=== PATIENT | female | born 1960 | race Native Hawaiian/Other Pacific Islander ===

== ENCOUNTER 2016-11-17 08:23 | Outpatient (CLI) | payer BC ==
[~2016-11-17 08:23] MED LIST: LEVO0.1224 PO; LEVO0.1T6 PO; OMEP40CA PO
== END 2016-11-17 19:44 | disposition home or self-care (01) ==
LOC: MAMMO 08:23
DX: Z12.31 Encounter for screening mammogram for malignant neoplasm of breast (principal)
CPT/HCPCS: G0202-TC

== ENCOUNTER 2018-09-21 09:10 | Outpatient (CLI) | payer BC | END 2018-09-21 22:48 | disposition home or self-care (01) | LOC: MAMMO 09:10 | DX: Z12.31 Encounter for screening mammogram for malignant neoplasm of breast (principal) ==

== ENCOUNTER 2021-03-19 14:34 | Observation (INO) | payer BC, OTHER ==
[~2021-03-19] VITALS: Ht 165.1 cm; Wt 70.4 kg
[2021-03-19 16:06] LABS: PLATELET COUNT 173 K/uL (152-353)
[2021-03-19 16:24] LABS: POTASSIUM 3.1 mmol/L (3.6-5.2)
--- NOTE | 2021-03-19 16:50 | NUR ---
RT TO ASSESS PT. BBS ARE CLEAR/DIMINSHED. SPO2 97% ON ROOM AIR. HR AT 80. CPT SMARTVEST AT BEDSIDE FOR FUTURE USE. PT EDUCTED ON USE OF ACAPELLA. PT DEMONSTRATED USE OF ACAPELLA. IS INSTRUCT COMPLETED. RT ENCOURAGED PT TO USE FREQUENTLY. PT PULLED 1500 X10 BREATHS. SPACER WITH MASK AND PERCUSSOR FOR CPT LEFT AT BEDSIDE.
[2021-03-19 20:00] VITALS: BP 140/81; TEMP 99.5
[2021-03-19 20:12] VITALS: BP 127/79; TEMP 98.8; Ht 165.1 cm; Wt 70.4 kg
[2021-03-20] VITALS: BP 116/71; TEMP 99.1
--- NOTE | 2021-03-20 03:11 | NUR ---
LATE ENTRY: 03/19/21 1900. PATIENT IV SITE IS INTACT. PATIENT DENIES ANY PAIN. PATIENT DENIES ANY SOB. 2100: PATIENT WAS HELPPED TO THE BATHROOM. PATIENT WAS THEN HOOKED BACK UP TO HER IV 2300: PATIENT IS RESTING QUIETLY, EYES CLOSED, AND BREATHING IS REGULAR NON LABORED
--- NOTE | 2021-03-20 03:21 | NUR ---
PATIENT IS RESTING QUIETLY BREATHING IS REGULAR AND NON LABORED. IV SITE IS INTACT.
--- NOTE | 2021-03-20 03:43 | NUR ---
PATIENT IS RESTING QUIETLY, EYES CLSOED AND BREATHING IS REGULAR NON LABORED
[2021-03-20 04:00] VITALS: BP 107/65; TEMP 99.2
[2021-03-20 06:11] LABS: PLATELET COUNT 158 K/uL (152-353)
[2021-03-20 06:35] LABS: POTASSIUM 3.3 mmol/L (3.6-5.2)
--- NOTE | 2021-03-20 06:41 | NUR ---
patient is sleeping with eyes closed
[2021-03-20 08:00] VITALS: BP 125/79; BP 98/67; TEMP 97.7; TEMP 98.1
[2021-03-20 12:16] VITALS: BP 126/81; TEMP 99.6
[2021-03-20 16:00] VITALS: BP 132/83; TEMP 99.8
--- NOTE | 2021-03-20 23:26 | NUR ---
patient was discharged at 2140. patien iv was taken out and cath tip intact. iv site is clean dry and intact. all patients valuables are secured. patient was wheeled to front and delivered to her
== END 2021-03-20 20:37 | disposition home or self-care (01) ==
LOC: MED/SURG 14:34
PROVIDERS: ADMIT Family Medicine; ATTEND Family Medicine
DX: U07.1 COVID-19 (principal); N39.0 Urinary tract infection, site not specified
CPT/HCPCS: 80053; 82728; 83735; 84100; 85027; 85379; 86140; 87040; 93005; 94667; 94668; 94760; 96365; 96366; 96367; 96375; 99220; G0378; G0379; J0456; J0696

== ENCOUNTER 2021-07-29 10:37 | Observation (INO) | payer BC ==
[~2021-07-29] VITALS: Ht 166.4 cm; Wt 71.4 kg
[2021-07-29 11:23] LABS: PLATELET COUNT 204 K/uL (152-353)
[2021-07-29 11:27] VITALS: BP 178/86; TEMP 98.7; Ht 166.4 cm; Wt 71.4 kg
[2021-07-29 11:51] LABS: PARTIAL THROMBOPLASTIN TIME 24.4 SECONDS (24.5-33.6)
[2021-07-29 11:55] LABS: POTASSIUM 4.6 mmol/L (3.6-5.2)
[2021-07-29 12:00] VITALS: BP 178/86; TEMP 98.7
--- NOTE | 2021-07-29 15:09 | NUR ---
HOME MEDICATIONS REVIEWED WITH PATIENT, MEDICATION RECONCILIATION SHEET COMPLETED AND FAXED TO PHARMACY AND SENT TO DR. BURGOS, NO NEW ORDERS RECEIVED AT THIS TIME.
[2021-07-29] MEDS ORDERED: CLIN300C PO (15:10)
[2021-07-29] MEDS ORDERED: MUPI2OIN2 TOP (15:11)
[2021-07-29] MEDS ORDERED: VITAMIN D1000 UNIT PO (15:12)
[2021-07-29] MEDS ORDERED: ZINC220 M1 PO (15:12)
[2021-07-29] MEDS ORDERED: VITAMIN C1000 MG PO (15:13)
[2021-07-29] MEDS ORDERED: PEPCID20 MG (15:14)
[2021-07-29] MEDS ORDERED: [UNRECOGNIZED DRUG - OTHER] PO (15:27)
[2021-07-29 16:00] VITALS: BP 152/83; TEMP 98.6
--- NOTE | 2021-07-29 16:05 | NUR ---
SUMMER OF RADIOLOGY CALLED AND STATED UTILIZATION REVIEW INFORMED RADIOLOGY THE ULTRASOUND SHOULD BE SCHEDULED AN OUTPATIENT AND PATIENT MUST HAVE A MAMMOGRAM PRIOR TO ULTRASOUND. THE ROLL FILLER REQUESTED RADIOLOGY DEPT NOTIFY ORDERING PHYSICIAN.
--- NOTE | 2021-07-29 16:11 | NUR ---
JOI OF RADIOLOGY DEPT NOTIFIED MEDICAL/SURGICAL DEPT SHE WAS UNABLE TO LOCATE A POLICY ON DEPTS NOTIFYING PHYSICIANS DIRECTLY AND INSTRUCTED MED SURG DEPT TO INFORM ORDERING PHYSICIAN THE ULTRASOUND WILL NOT BE DONE TODAY.
--- NOTE | 2021-07-29 16:31 | NUR ---
RECEIVED NEW ORDERS TO BEGIN ZOSYN 3.375MG VIA IVP Q6 HOURS WITH FIRST DOSE NOW, NOTED AND CARRIED OUT.
--- NOTE | 2021-07-29 19:33 | NUR ---
NOTIFIED DR. BURGOS OF PATIENT'S ALLERGY TO ZOSYN, RECEIVED NEW ORDERS TO D/C ZOSYN AND BEGIN ROCEPHINE AND NS @ 83ML/HR. PHYSICIAN ALSO INSTRUCTED CRISIS NURSE NOT TO RESTART HOME MEDICATIONS TONIGHT, ORDERS NOTED AND CARRIED OUT.
[2021-07-29 20:08] VITALS: BP 150/64; TEMP 98.4
[2021-07-29 23:34] VITALS: BP 129/81; TEMP 98.3
--- NOTE | 2021-07-30 00:30 | NUR ---
PT IN BED RESTING QUIETLY WITH EYES CLOSED. PT ALERT TO VERBAL STIMULI. PT DENES PA IN AT PRESENT. PT REFUSED NITRO. PT ABLE TO COMPLETE ADLS WITH MINIMAL ASSISTANCE. IV TO RIGHT AC INTACT AND PATENT. PT HAS FLUID INFUSION SET AT 83ML/HR. PT ADMINISTED ABTX PER ORDERS. NO ADVERSE REACTION NOTED WILL CONTINUE TO MONITOR. CALL LIGHT IN REACH
[2021-07-30 04:18] VITALS: BP 133/62; TEMP 98.4
[2021-07-30 08:00] VITALS: BP 149/88; TEMP 97.9
--- NOTE | 2021-07-30 09:18 | NUR ---
@0730-PT LAYING SEMI-FOWLERS IN BED. DENIES ANY CHEST PAIN/DISCOMFORT, ANY PAIN AT PRESENT TIME. ULTRASOUND SCHEDULED AND COMPLETED THIS AM. IV SITE TO RAC INTACT WITH NO REDNESS,SWELLING OR LEAKING NOTED TO SITE. NS IVF INFUSING AT 83 ML/HR. BRUSING NOTED TO LEFT LE R/T VEIN CAPPING. AMBULATES TO BATHROOM. PT REQUESTED WASHCLOTHS AND TOWELS TO GIVE HERSELF A BED BATH. STEADY GAIT. NAD NOTED. A&O X4. NO VOICED COMPLAINTS. CONTINUE TO MONITOR.
[2021-07-30 12:00] VITALS: BP 142/76; TEMP 98.3
--- NOTE | 2021-07-30 14:17 | NUR ---
PT REQUESTING TO SEE PCP(LORETTA) WANTS TO BE DISCHARGED TO GO HOME. DENIES ANY PAIN/DISCOMFORT. NAD NOTED. NO VOICED COMPLAINTS.
--- NOTE | 2021-07-30 16:16 | NUR ---
PT DISCHARGED HOME PER PCP(LORETTA). DISCHARGE INSTRUCTIONS GIVEN TO PT INCLUDING NEW MED ORDERS FOR: METEPROLOL 25 MG PO BID AND LOSARTAN 50 MG PO DAILY, MEDS CALLED IN TO [facility]. PT INSTRUCTED TO CALL PCP OFFICE ON MONDAY TO SCHEDULE F/U APPOINTMENT, OFFICE CLOSED AT TIME OF DISCHARGE. NUCLEAR STRESS TEST ORDER FAXED TO [facility] AND WILL CONTACT PT FOR APPOINTMENT DATE. PT VERBALIZED UNDERSTANDING OF DISCHARGE INSTRUCTIONS. IV SITE TO RAC D/C'D WITH NO REDNESS OR SWELLING. TELEMETRY D/C'D. PT TRANSPORTED OUT OF FACILITY AT 1615 VIA WHEELCHAIR. AWAITING TO TAKE PT HOME.
== END 2021-07-30 16:15 | disposition home or self-care (01) ==
LOC: MED/SURG 10:37
PROVIDERS: ADMIT Family Medicine; ATTEND Family Medicine
DX: R07.89 Other chest pain (principal); I51.7 Cardiomegaly; R53.83 Other fatigue
CPT/HCPCS: 36415; 80053; 82550; 84436; 84443; 84481; 84484; 85027; 85610; 85730; 87635; 93005; 96361; 96365; 96366; 96367; 96372; 99220; G0378; G0379; J0696; J1650; U0003

== ENCOUNTER 2021-08-04 09:25 | Outpatient (CLI) | payer BC ==
[~2021-08-04 09:25] MED LIST changes: +CLIN300C PO; +MUPI2OIN2 TOP; +PEPCID20 MG; +VITAMIN C1000 MG PO; +VITAMIN D1000 UNIT PO; +ZINC220 M1 PO; +[UNRECOGNIZED DRUG - OTHER] PO
== END 2021-08-04 20:13 | disposition home or self-care (01) ==
LOC: MAMMO 09:25
PROVIDERS: ATTEND Family Medicine
DX: N61.1 Abscess of the breast and nipple (principal)
CPT/HCPCS: G0279

== ENCOUNTER 2021-08-18 08:06 | Outpatient (CLI) | payer BC | END 2021-08-18 21:17 | disposition home or self-care (01) | LOC: NM 08:06 | PROVIDERS: ATTEND Family Medicine | DX: R07.9 Chest pain, unspecified (principal); I51.7 Cardiomegaly | CPT/HCPCS: A9500 ==